=== PATIENT | female | born 1985 | race Caucasian/White ===

== ENCOUNTER 2024-07-13 10:06 | Emergency (ER) | payer BC ==
[2024-07-13 10:43] LABS: BASOPHILS ABSOLUTE AUTO 0.04 K/uL (0.00-0.20); BASOPHILS PERCENT AUTO 0.4 % (0.0-1.0); EOSINOPHILS ABSOLUTE AUTO 0.01 K/uL (0.00-0.45); EOSINOPHILS PERCENT AUTO 0.1 % (0.0-6.0); HEMATOCRIT 37.3 % (37.0-47.0); HEMOGLOBIN 12.8 g/dL (12.0-16.0); IMMATURE GRAN ABSOLUTE AUTO 0.03 K/uL (0.00-0.05); IMMATURE GRAN PERCENT AUTO 0.3 % (0.0-0.4); LYMPHOCYTES PERCENT AUTO 12.1 % (24.0-44.0); MEAN CORPUSCULAR HEMOGLOBIN 29.6 pg (28.0-32.0); MEAN CORPUSCULAR HGB CONC 34.3 g/dL (32.0-36.0); MEAN CORPUSCULAR VOLUME 86.3 fL (83.0-99.0); MEAN PLATELET VOLUME 10.1 fL (9.4-12.3); MONOCYTES ABSOLUTE AUTO 0.64 K/uL (0.00-0.80); MONOCYTES PERCENT AUTO 6.4 % (0.0-8.0); NEUTROPHILS ABSOLUTE AUTO 8.03 K/uL (1.80-7.70); NEUTROPHILS PERCENT AUTO 80.7 % (41.0-71.0); PLATELET COUNT,PLT 223 K/uL (150-400); RED BLOOD CELL COUNT 4.32 M/uL (4.10-5.30); WHITE BLOOD CELL COUNT,WBC 9.95 K/uL (3.9-11.3)
[2024-07-13] MEDS: Sodium Chloride 0.9% 1,000 ML IV SCH (10:46)
[2024-07-13] MEDS: Ketorolac 30 MG/ML SDV IVPUSH ONE (10:46)
[2024-07-13] MEDS: Acetaminophen 500 MG Tab PO ONE (10:47)
[2024-07-13 11:10] LABS: A/G RATIO 0.8 (0.9-1.6); ALBUMIN 3.6 g/dL (3.4-5.0); BILIRUBIN TOTAL 0.9 mg/dL (0.2-1.0); CALCIUM 8.8 mg/dL (8.5-10.1); CARBON DIOXIDE,CO2 25.9 mmol/L (21.0-32.0); CREATININE 1.1 mg/dL (0.6-1.0); EST CRCL DRUG DOSING (CG) 53.23 mL/min; POTASSIUM,K 3.4 mmol/L (3.5-5.1)
[2024-07-13 12:05] LABS: APPEARANCE,URINE CLEAR; BILIRUBIN,URINE NEGATIVE (NEGATIVE); COLOR,URINE YELLOW; GLUCOSE,URINE NEGATIVE (NEGATIVE); KETONES,URINE >=80 mg/dL (NEGATIVE); LEUKOCYTE ESTERASE,URINE SMALL (NEGATIVE); NITRITE,URINE NEGATIVE (NEGATIVE); OCCULT BLOOD,URINE SMALL (NEGATIVE); PROTEIN,URINE NEGATIVE (NEGATIVE); UROBILINOGEN,URINE 0.2 EU/dL (<2.0)
[2024-07-13 12:26] LABS: BACTERIA,URINE 1+ (NEGATIVE); SQUAMOUS EPITHELIAL CELLS,UR MODERATE
[2024-07-13 12:27] LABS: MUCUS,URINE LIGHT (NONE-MOD)
[2024-07-13 12:58] VITALS: BP 118/76; PULSE 98
== END 2024-07-13 12:55 | disposition home or self-care (01) ==
LOC: MW.ED 10:06
DX: N39.0 Urinary tract infection, site not specified (principal); Z75.3 Unavailability and inaccessibility of health-care facilities; Z79.899 Other long term (current) drug therapy
CPT/HCPCS: 36415; 80053; 81001; 82550; 83690; 85025; 87086; 96361; 96374; 99283; A9270; J1885; J7030

== ENCOUNTER 2024-07-14 03:41 | Emergency (ER) | payer BC ==
[2024-07-14 03:57] LABS: APPEARANCE,URINE SLT CLOUDY; BILIRUBIN,URINE NEGATIVE (NEGATIVE); COLOR,URINE ORANGE; GLUCOSE,URINE 100 mg/dL (NEGATIVE); KETONES,URINE >=80 mg/dL (NEGATIVE); LEUKOCYTE ESTERASE,URINE SMALL (NEGATIVE); NITRITE,URINE POSITIVE (NEGATIVE); OCCULT BLOOD,URINE SMALL (NEGATIVE); PROTEIN,URINE TRACE mg/dL (NEGATIVE)
[2024-07-14] MEDS ORDERED: Sodium Chloride 0.9% 20 ML SDV IV PRN (04:03)
[2024-07-14 04:09] LABS: BACTERIA,URINE 1+ (NEGATIVE); EPITHELIAL CELLS,URINE FEW (NONE-FEW); RBC,URINE 0-2 (0-2/HPF)
[2024-07-14] MEDS: Sodium Chloride 0.9% 1,000 ML IV STA (04:17)
[2024-07-14] MEDS: Ondansetron 4 MG/2 ML SDV IVPUSH ONE (04:19)
[2024-07-14] MEDS: Sodium Chloride 0.9% 2.5 ML Syringe FLUSH PRN (04:20)
[2024-07-14] MEDS: Morphine 4 MG/ML Syringe IVPUSH ONE (04:20)
[2024-07-14] MEDS: Sodium Chloride 0.9% 10 ML Syringe FLUSH PRN (04:20)
[2024-07-14] MEDS: cefTRIAXone 1 GM in Water For Injection, Sterile 10 ML IVPUSH ONE (04:21)
[2024-07-14] MEDS: Ibuprofen 600 MG Tab PO ONE (05:22)
[2024-07-14 05:51] VITALS: BP 133/80; PULSE 90
== END 2024-07-14 05:49 | disposition home or self-care (01) ==
LOC: MW.ED 03:41
DX: N12 Tubulo-interstitial nephritis, not specified as acute or chronic (principal); J18.9 Pneumonia, unspecified organism; Z79.899 Other long term (current) drug therapy
CPT/HCPCS: 74176; 81001; 81025; 96361; 96374; 96375; 99284; A9270; J0696; J2270; J2405; J7030

== ENCOUNTER 2024-07-16 04:34 | Inpatient (IN) | payer BC ==
[2024-07-16] MEDS ORDERED: Sodium Chloride 0.9% 2.5 ML Syringe FLUSH PRN (04:58)
[2024-07-16] MEDS ORDERED: Sodium Chloride 0.9% 20 ML SDV IV PRN (04:58)
[2024-07-16] MEDS ORDERED: Sodium Chloride 0.9% 10 ML Syringe FLUSH PRN (04:58)
[2024-07-16] MEDS: Morphine 4 MG/ML Syringe IVPUSH ONE (05:08)
[2024-07-16] MEDS: cefTRIAXone 2 GM Vial IVPUSH SCH (05:08)
[2024-07-16] MEDS: Sodium Chloride 0.9% 1,000 ML IV SCH ×2 (05:08→08:52)
[2024-07-16] MEDS: Water For Injection, Sterile 10 ML SDV INJECT ONE (05:09)
[2024-07-16 05:10] LABS: BASOPHILS ABSOLUTE AUTO 0.03 K/uL (0.00-0.20); BASOPHILS PERCENT AUTO 0.3 % (0.0-1.0); EOSINOPHILS ABSOLUTE AUTO 0.02 K/uL (0.00-0.45); EOSINOPHILS PERCENT AUTO 0.2 % (0.0-6.0); HEMATOCRIT 34.3 % (37.0-47.0); IMMATURE GRAN ABSOLUTE AUTO 0.12 K/uL (0.00-0.05); IMMATURE GRAN PERCENT AUTO 1.1 % (0.0-0.4); LYMPHOCYTES ABSOLUTE AUTO 0.83 K/uL (1.00-4.80); LYMPHOCYTES PERCENT AUTO 7.6 % (24.0-44.0); MEAN CORPUSCULAR HEMOGLOBIN 29.7 pg (28.0-32.0); MEAN CORPUSCULAR VOLUME 84.9 fL (83.0-99.0); MONOCYTES ABSOLUTE AUTO 0.76 K/uL (0.00-0.80); NEUTROPHILS ABSOLUTE AUTO 9.16 K/uL (1.80-7.70); NEUTROPHILS PERCENT AUTO 83.8 % (41.0-71.0); PLATELET COUNT,PLT 252 K/uL (150-400); RED BLOOD CELL COUNT 4.04 M/uL (4.10-5.30); WHITE BLOOD CELL COUNT,WBC 10.92 K/uL (3.9-11.3)
[2024-07-16] MEDS: Azithromycin 250 MG Tab PO ONE (05:26)
[2024-07-16] MEDS: Iopamidol 755 MG/ML 500 ML Multipack Bottle IVPUSH ONE (05:31)
[2024-07-16 05:36] LABS: C-REACTIVE PROTEIN 21.11 mg/dL (<0.3); CALCIUM 8.7 mg/dL (8.5-10.1); CARBON DIOXIDE,CO2 23.6 mmol/L (21.0-32.0); EST CRCL DRUG DOSING (CG) 58.55 mL/min
[2024-07-16] MEDS: Acetaminophen 500 MG Tab PO ONE (06:28)
[2024-07-16] MEDS: Sodium Chloride 0.9% 1,000 ML IV ONE (06:32)
[2024-07-16] MEDS: Potassium Chloride 20 MEQ Tab.ER PO ONE ×2 (06:35→08:52)
[2024-07-16] MEDS ORDERED: Docusate Sodium 100 MG Cap PO PRN (08:00)
[2024-07-16] MEDS ORDERED: Polyethylene Glycol 3350 Powder 17 GM Packet PO PRN (08:00)
[2024-07-16] MEDS ORDERED: Albuterol 0.083% 2.5 MG/3 ML Neb Soln NEB PRN (08:00)
[2024-07-16] MEDS ORDERED: Albuterol 6.7 GM Inhaler INH PRN (08:03)
[2024-07-16] MEDS ORDERED: Phenazopyridine 200 MG Tab PO PRN (08:03)
[2024-07-16] MEDS: Magnesium Sulfate 2 GM/50 mL 2 GM in Premix Bag 1 BAG IV ONE (08:51)
[2024-07-16] MEDS: VILAZADONE PO SCH (10:43)
[2024-07-16] MEDS: BUPROPRION 100 MG PO SCH (10:44)
[2024-07-16] MEDS: Acetaminophen 325 MG Tab PO PRN (12:17)
[2024-07-16] MEDS: Ibuprofen 600 MG Tab PO PRN (14:19)
[2024-07-16] MEDS: Codeine/guaiFENesin 10-100 MG/5 ML Syrup 5 ML Cup PO PRN (14:21)
[2024-07-17] MEDS: Azithromycin 500 MG in Sodium Chloride 0.9% 250 ML IV SCH (05:03)
[2024-07-17] MEDS: cefTRIAXone 1 GM in Water For Injection, Sterile 10 ML IVPUSH SCH (05:03)
[2024-07-17 06:10] LABS: BASOPHILS ABSOLUTE AUTO 0.04 K/uL (0.00-0.20); BASOPHILS PERCENT AUTO 0.3 % (0.0-1.0); EOSINOPHILS ABSOLUTE AUTO 0.01 K/uL (0.00-0.45); EOSINOPHILS PERCENT AUTO 0.1 % (0.0-6.0); HEMOGLOBIN 10.8 g/dL (12.0-16.0); IMMATURE GRAN ABSOLUTE AUTO 0.26 K/uL (0.00-0.05); IMMATURE GRAN PERCENT AUTO 2.1 % (0.0-0.4); LYMPHOCYTES ABSOLUTE AUTO 1.12 K/uL (1.00-4.80); LYMPHOCYTES PERCENT AUTO 8.9 % (24.0-44.0); MEAN CORPUSCULAR HEMOGLOBIN 28.8 pg (28.0-32.0); MEAN CORPUSCULAR HGB CONC 32.7 g/dL (32.0-36.0); MEAN PLATELET VOLUME 9.5 fL (9.4-12.3); MONOCYTES ABSOLUTE AUTO 0.76 K/uL (0.00-0.80); MONOCYTES PERCENT AUTO 6.1 % (0.0-8.0); NEUTROPHILS ABSOLUTE AUTO 10.34 K/uL (1.80-7.70); NEUTROPHILS PERCENT AUTO 82.5 % (41.0-71.0); PLATELET COUNT,PLT 256 K/uL (150-400); RED BLOOD CELL COUNT 3.75 M/uL (4.10-5.30); WHITE BLOOD CELL COUNT,WBC 12.53 K/uL (3.9-11.3)
[2024-07-17] MEDS: Ondansetron 4 MG/2 ML SDV IVPUSH PRN (06:15)
[2024-07-17 06:28] LABS: CALCIUM 7.8 mg/dL (8.5-10.1); CARBON DIOXIDE,CO2 27.4 mmol/L (21.0-32.0); CREATININE 0.8 mg/dL (0.6-1.0); EST CRCL DRUG DOSING (CG) 73.19 mL/min; POTASSIUM,K 3.7 mmol/L (3.5-5.1)
[2024-07-17 07:07] LABS: BORDETELLA PARAPERT IS1001 Not Detected (Not Detected)
[2024-07-17] MEDS: guaiFENesin 600 MG Tab.ER PO PRN (18:07)
[2024-07-17] MEDS: Benzonatate 100 MG Cap PO PRN (18:07)
[2024-07-18 10:08] LABS: HEMATOCRIT 32.1 % (37.0-47.0); HEMOGLOBIN 10.9 g/dL (12.0-16.0); MEAN CORPUSCULAR HEMOGLOBIN 29.7 pg (28.0-32.0); MEAN CORPUSCULAR VOLUME 87.5 fL (83.0-99.0); MEAN PLATELET VOLUME 9.3 fL (9.4-12.3); PLATELET COUNT,PLT 320 K/uL (150-400); RED BLOOD CELL COUNT 3.67 M/uL (4.10-5.30); WHITE BLOOD CELL COUNT,WBC 11.82 K/uL (3.9-11.3)
[2024-07-18 10:27] LABS: BAND ABSOLUTE MAN 0.12; BAND PERCENT MAN 1 %; CALCIUM 8.4 mg/dL (8.5-10.1); CARBON DIOXIDE,CO2 29.4 mmol/L (21.0-32.0); CREATININE 0.8 mg/dL (0.6-1.0); EST CRCL DRUG DOSING (CG) 73.19 mL/min; LYMPHOCYTES ABSOLUTE MAN 2.84 K/uL (1.00-4.80); LYMPHOCYTES PERCENT MAN 24 % (24-44); METAMYELOCYTE ABSOLUTE MAN 0.35; METAMYELOCYTE PERCENT MAN 3 %; MONOCYTES ABSOLUTE MAN 0.83 K/uL (0.00-0.80); MONOCYTES PERCENT MAN 7 % (0-8); MYELOCYTE ABSOLUTE MAN 0.12; MYELOCYTE PERCENT MAN 1 %; POTASSIUM,K 3.2 mmol/L (3.5-5.1); SEG NEUTROPHILS ABSOLUTE MAN 7.56 K/uL (1.80-7.70); SEG NEUTROPHILS PERCENT MAN 64 % (41-71)
[2024-07-18] MEDS: Potassium Chloride 20 MEQ Tab.ER PO ONE (11:02)
[2024-07-18] MEDS: Melatonin 3 MG Tab PO PRN (20:37)
[2024-07-19 06:27] LABS: HEMATOCRIT 28.6 % (37.0-47.0); HEMOGLOBIN 9.8 g/dL (12.0-16.0); MEAN CORPUSCULAR HEMOGLOBIN 30.2 pg (28.0-32.0); MEAN CORPUSCULAR HGB CONC 34.3 g/dL (32.0-36.0); MEAN CORPUSCULAR VOLUME 88.3 fL (83.0-99.0); MEAN PLATELET VOLUME 9.5 fL (9.4-12.3); PLATELET COUNT,PLT 300 K/uL (150-400); RED BLOOD CELL COUNT 3.24 M/uL (4.10-5.30); WHITE BLOOD CELL COUNT,WBC 8.99 K/uL (3.9-11.3)
[2024-07-19 07:10] LABS: BAND ABSOLUTE MAN 0.09; BAND PERCENT MAN 1 %; EOSINOPHILS ABSOLUTE MAN 0.09 K/uL (0.00-0.45); EOSINOPHILS PERCENT MAN 1 % (0-6); LYMPHOCYTES ABSOLUTE MAN 2.61 K/uL (1.00-4.80); LYMPHOCYTES PERCENT MAN 29 % (24-44); METAMYELOCYTE ABSOLUTE MAN 0.27; METAMYELOCYTE PERCENT MAN 3 %; MONOCYTES ABSOLUTE MAN 0.45 K/uL (0.00-0.80); MONOCYTES PERCENT MAN 5 % (0-8); MYELOCYTE ABSOLUTE MAN 0.09; MYELOCYTE PERCENT MAN 1 %; SEG NEUTROPHILS ABSOLUTE MAN 5.39 K/uL (1.80-7.70); SEG NEUTROPHILS PERCENT MAN 60 % (41-71)
[2024-07-19 08:15] VITALS: BP 130/81; PULSE 81
== END 2024-07-19 10:18 | disposition home or self-care (01) | DRG 139 ==
LOC: MW.ED 04:34 → OBSVTOIN 06:12 → MW.MS 06:12
PROVIDERS: ADMIT Internal Medicine; ATTEND Internal Medicine
DX: J18.9 Pneumonia, unspecified organism (principal); J96.01 Acute respiratory failure with hypoxia; F41.9 Anxiety disorder, unspecified; E86.0 Dehydration; H54.7 Unspecified visual loss; F32.A Depression, unspecified; Z98.891 History of uterine scar from previous surgery; Z86.73 Personal history of transient ischemic attack (TIA), and cerebral infarction without residual deficits; Z85.038 Personal history of other malignant neoplasm of large intestine; Z85.841 Personal history of malignant neoplasm of brain; Z98.890 Other specified postprocedural states; Z79.899 Other long term (current) drug therapy
CPT/HCPCS: 36415; 71275; 71275-26; 80048; 83605; 83735; 85025; 86140; 87040; 87070; 87205; 87428-QW; 87486; 87581; 87633; 87641; 87899; 93005; 93010; 96361; 96365; 96366; 96374; 96375; 99222; 99231; 99238; 99285; 99285-25; A9270-GY; G0378; J0456; J0696; J2270; J2405; J3475; J7030; J7050; Q9967